=== PATIENT | female | born 1995 | race Caucasian/White ===

== ENCOUNTER 2018-09-11 19:19 | Emergency (ER) | payer SELFPAY ==
[~2018-09-11] VITALS: Ht 157.5 cm; Wt 40.4 kg
[2018-09-11 19:22] VITALS: Ht 157.5 cm; Wt 40.4 kg
[2018-09-11] MEDS ORDERED: ACETAMINOPHEN 500 MG TAB PO STA (21:03)
[2018-09-11] MEDS ORDERED: IBUP-1561 PO (22:09)
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
[2018-09-11 22:25] VITALS: BP 121/71; PULSE 88; RESP 16
== END 2018-09-11 22:25 | disposition home or self-care (01) ==
LOC: FTE 19:19
DX: S13.9XXA Sprain of joints and ligaments of unspecified parts of neck, initial encounter (principal); R07.89 Other chest pain; V49.40XA Driver injured in collision with unspecified motor vehicles in traffic accident, initial encounter
CPT/HCPCS: 71045; 72040